=== PATIENT | female | born 1945 | race Caucasian/White ===

== ENCOUNTER → 2021-02-01 | Outpatient (CLI) | payer MEDICARE, OTHER ==
[~2021-02-01] MED LIST: MEDROL DOSEPAK 24 MG PO; PROVENTIL HFA6.7 GM INH
[2021-02-01 08:54] LABS: HEMOGLOBIN 15.6 gm/dl (12.3-15.3); RED BLOOD COUNT 5.18 M/UL (4.00-5.10); WHITE BLOOD COUNT 8.9 K/UL (4.5-11.0)
[2021-02-01 10:06] LABS: BUN/CREATININE RATIO 26 (0-10)
[2021-02-03 11:27] LABS: CHOLESTEROL, TOTAL 214 mg/dL (100-199); HDL-C 53 mg/dL (>39); HDL-P (TOTAL) 34.4 umol/L (>=30.5); LARGE HDL-P 5.6 umol/L (>=4.8); LARGE VLDL-P 5.3 nmol/L (<=2.7); LDL SIZE 21.2 nm (>20.5); LDL SIZE 21.2 nm (>=20.8); LDL-C 138 mg/dL (0-99); LDL-P 1543 nmol/L (<1000); LP-IR SCORE 54 (<=45); SMALL LDL-P 426 nmol/L (<=527); TRIGLYCERIDES 127 mg/dL (0-149); VLDL SIZE 48.6 nm (<=46.6)
== END ==
LOC: LAB 08:30
PROVIDERS: Emergency Medicine
DX: E11.22 Type 2 diabetes mellitus with diabetic chronic kidney disease (principal); I12.9 Hypertensive chronic kidney disease with stage 1 through stage 4 chronic kidney disease, or unspecified chronic kidney disease; N18.2 Chronic kidney disease, stage 2 (mild); E03.8 Other specified hypothyroidism; E78.2 Mixed hyperlipidemia
CPT/HCPCS: 36415; 80053; 80061; 83704; 84443; 84550; 85025

== ENCOUNTER → 2021-12-13 | Outpatient (CLI) | payer MEDICARE, OTHER ==
[2021-12-13 12:26] LABS: BUN/CREATININE RATIO 28 (0-10)
== END ==
LOC: LAB 11:29
PROVIDERS: Emergency Medicine
DX: E03.8 Other specified hypothyroidism (principal); E78.2 Mixed hyperlipidemia; I10 Essential (primary) hypertension
CPT/HCPCS: 36415; 80053; 84443